=== PATIENT | female | born 1955 | race Caucasian/White ===

== ENCOUNTER → 2016-10-20 | Outpatient (CLI) | payer OTHER | LOC: FIMAGING 08:10 | DX: Z12.31 Encounter for screening mammogram for malignant neoplasm of breast (principal); Z80.3 Family history of malignant neoplasm of breast | CPT/HCPCS: G0202 ==

== ENCOUNTER → 2016-10-30 | Outpatient (CLI) | payer OTHER | LOC: BMCIMAGING 16:13 | PROVIDERS: ATTEND Internal Medicine | DX: J40 Bronchitis, not specified as acute or chronic (principal); J18.9 Pneumonia, unspecified organism ==

== ENCOUNTER → 2016-12-10 | Outpatient (CLI) | payer OTHER | LOC: BMCIMAGING 09:43 | PROVIDERS: ATTEND Internal Medicine | DX: Z87.01 Personal history of pneumonia (recurrent) (principal); Z09 Encounter for follow-up examination after completed treatment for conditions other than malignant neoplasm ==

== ENCOUNTER → 2017-10-25 | Outpatient (CLI) | payer OTHER | LOC: FIMAGING 14:15 | PROVIDERS: ATTEND Internal Medicine | DX: Z12.31 Encounter for screening mammogram for malignant neoplasm of breast (principal); Z80.3 Family history of malignant neoplasm of breast ==

== ENCOUNTER 2018-11-12 21:06 | Emergency (ER) | payer OTHER ==
[2018-11-12 21:11] VITALS: BP 122/84
[2018-11-12] MEDS ORDERED: TDAP ADULT 0.5 ML INJ (BOOSTRIX) IM ONE (21:38)
--- NOTE | 2018-11-12 21:38 | EDPHY ---
H & P Time Seen by Provider: 11/12/18 21:21 HPI/ROS: Chief complaint: Right thumb puncture wound History of present illness: This is a 63-year-old female who presents to the emergency department after puncturing her right thumb on a quan thorn earlier today while working in the garden. Minimal pain. Slight swelling. She is able to move the thumb well. No abnormal coolness or paresthesias in the thumb. No other injuries reported. She is primarily requesting a tetanus immunization. Smoking Status: Never smoked Physical Exam: General: Alert, nontoxic. Skin: Small puncture wound to right thumb with slight erythema and edema. Minimal tenderness. No warmth. Musculoskeletal: She is moving the thumb in the PIP and MCP joint well. Vascular: Capillary refill brisk in the right thumb. Neurologic: Sensation intact in the right thumb. Constitutional: Initial Vital Signs Temperature (C) 36.6 C 11/12/18 21:09 Heart Rate 86 11/12/18 21:09 Respiratory Rate 16 11/12/18 21:09 Blood Pressure 122/84 H 11/12/18 21:09 O2 Sat (%) 94 11/12/18 21:09 O2 Delivery Mode Room Air Allergies/Adverse Reactions: Penicillins Allergy (Verified 11/12/18 21:09) Sulfa (Sulfonamide Antibiotics) Allergy (Verified 11/12/18 21:09) Home Medications: Medication Instructions Recorded NK [No Known Home Meds] 11/12/18 MDM/Departure - MDM Medications Given: Discontinued Medications Diphtheria/Tetanus/Acell Pertussis (Boostrix) 0.5 ml IM .ONCE ONE Stop: 11/12/18 21:39 Last Admin: 11/12/18 21:41 Dose: 0.5 ml ED Course/Re-evaluation: Patient seen under the supervision of my secondary supervising physician Dr. Emilie Banuelos. Patient presents for a puncture wound to her right thumb. The thumb is neurovascularly intact. No evidence of complications such as cellulitis. I discussed wound care. Her tetanus is updated. Strict return precautions are given. Patient voiced understanding and agreement with plan. Differential Diagnosis: Included but not limited to puncture wound, doubtful infectious - Depart Disposition: Home, Routine, Self-Care Clinical Impression: Puncture Condition: Good Instructions: Puncture Wound (ED), Acute Wounds (ED) Additional Instructions: Follow-up with your primary care doctor for recheck If symptoms worsen or new symptoms develop return to the emergency room for recheck Referrals: Yesy Wild MD [Primary Care Provider] - As per Instructions
== END 2018-11-12 21:50 | disposition home or self-care (01) ==
DX: S61.001A Unspecified open wound of right thumb without damage to nail, initial encounter (principal); W26.8XXA Contact with other sharp object(s), not elsewhere classified, initial encounter; Z23 Encounter for immunization; Y93.H2 Activity, gardening and landscaping

== ENCOUNTER → 2018-11-28 | Outpatient (CLI) | payer OTHER | LOC: FIMAGING 14:18 ==